=== PATIENT | female | born 1995 | race African-American/Black ===

== ENCOUNTER 2024-02-04 07:43 | Emergency (ER) | payer MEDICAID ==
[~2024-02-04] VITALS: Ht 175.3 cm; Wt 82.0 kg
[2024-02-04 07:49] VITALS: O2SAT 100
[2024-02-04] MEDS ORDERED: AMOX1TAB16 PO (08:17)
[2024-02-04] MEDS ORDERED: IBUP-2030 PO (08:17)
[2024-02-04] MEDS: ACETAMINOPHEN WITH CODEINE 300/30MG TABLET PO ONE (08:22)
[2024-02-04] MEDS: IBUPROFEN 800MG TABLET PO ONE (08:22)
[2024-02-04 08:44] VITALS: BP 127/71; PULSE 69; RESP 16; TEMP 36.72516; O2SAT 99
== END 2024-02-04 08:45 | disposition home or self-care (01) ==
LOC: ER 07:43
DX: K04.7 Periapical abscess without sinus (principal); Z88.6 Allergy status to analgesic agent
CPT/HCPCS: 81025; 99283

== ENCOUNTER 2024-10-12 12:57 | Emergency (ER) | payer MEDICAID ==
[~2024-10-12] VITALS: Ht 175.3 cm; Wt 79.4 kg
[~2024-10-12 12:57] MED LIST: AMOX1TAB16 PO; IBUP-2030 PO
[2024-10-12 13:01] VITALS: O2SAT 100
[2024-10-12 13:05] VITALS: BP 118/86; PULSE 74; RESP 16; TEMP 36.9; O2SAT 100
[2024-10-12] MEDS ORDERED: PREN-118 MT (15:50)
== END 2024-10-12 16:13 | disposition home or self-care (01) ==
LOC: ER 12:57
DX: O26.891 Other specified pregnancy related conditions, first trimester (principal); Z79.1 Long term (current) use of non-steroidal anti-inflammatories (NSAID); Z3A.08 8 weeks gestation of pregnancy; Z79.899 Other long term (current) drug therapy
CPT/HCPCS: 36415; 76801; 81025; 84702; 99284

== ENCOUNTER 2024-12-11 08:19 | Emergency (ER) | payer MEDICAID ==
[~2024-12-11] VITALS: Ht 175.3 cm; Wt 81.6 kg
[~2024-12-11 08:19] MED LIST changes: +PREN-118 MT
[2024-12-11 08:26] VITALS: O2SAT 100
[2024-12-11 08:33] VITALS: BP 119/60; PULSE 115; RESP 18; TEMP 37.2; O2SAT 99
[2024-12-11] MEDS ORDERED: SODIUM CHLORIDE 0.9% 1,000 ML IV ONE (09:15)
[2024-12-11] MEDS ORDERED: ONDANSETRON HCL 4MG/2ML INJ IV ONE (09:15)
[2024-12-11 09:19] LABS: CLARITY URINE CLEAR (CLEAR); COLOR URINE YELLOW (YELLOW); GLUCOSE URINE NEGATIVE (NEGATIVE); KETONES URINE TRACE (NEGATIVE); LEUKOCYTE ESTERASE URINE TRACE (NEGATIVE); NITRITE URINE NEGATIVE (NEGATIVE); OCCULT BLOOD URINE NEGATIVE (NEGATIVE); PH URINE 8.5 (4.5-8.0); PROTEIN URINE TRACE (NEGATIVE); SPECIFIC GRAVITY URINE 1.018 (1.005-1.030); UROBILINOGEN URINE 1.0 E.U./dL (0.2-1.0)
[2024-12-11 09:28] LABS: HEMATOCRIT. 32.7 % (36.0-48.0); HEMOGLOBIN. 11.3 g/dL (12.0-16.0); MEAN PLATELET VOLUME 7.7 fl (7.4-10.4); PLATELET 313 x1000/uL (130-400); RED BLOOD CELL COUNT 3.96 mill/uL (4.2-5.4); RED CELL DISTRIBUTION WIDTH 14.1 % (11.6-14.6)
[2024-12-11 09:45] LABS: BACTERIA URINE 3+; RBC URINE 0-2 /hpf (0-2); SQUAMOUS EPITHELIAL CELL URINE 3+ /lpf (RARE/1+)
[2024-12-11 09:45] LABS: CREATININE 0.9 mg/dL (0.6-1.0); UREA NITROGEN BLOOD 7 mg/dL (9-23)
[2024-12-11 09:47] LABS: ASPARTATE AMINOTRANSFERASE 15 IU/L (<34); BILIRUBIN DIRECT 0.1 mg/dL (<=3.0); BILIRUBIN TOTAL 0.5 mg/dL (0.1-1.0); PROTEIN TOTAL 7.2 g/dL (6.0-8.3)
[2024-12-11] MEDS ORDERED: FAMOTIDINE 20MG/2ML VIAL IV ONE (10:15)
[2024-12-11] MEDS ORDERED: MAGNESIUM/ALUMINUM HYDROXIDE/SIMETHICONE 30ML UDC PO ONE (10:15)
[2024-12-11 10:27] LABS: B-HCG QUANTITATIVE 13477 mIU/mL (<6)
[2024-12-11 11:17] LABS: BAND% 17.0 % (1.0-6.0); LYMPHOCYTES % MANUAL 5.0 % (20.0-60.0); MONOCYTES % MANUAL 4.0 % (2.0-8.0); NEUTROPHILS % MANUAL 74.0 % (45.0-75.0); PLATELET ESTIMATE NORMAL
== END 2024-12-11 10:42 | disposition left against medical advice (07) ==
LOC: ER 10:20
DX: O26.892 Other specified pregnancy related conditions, second trimester (principal); O21.9 Vomiting of pregnancy, unspecified; R10.2 Pelvic and perineal pain; Z3A.17 17 weeks gestation of pregnancy
CPT/HCPCS: 99284; 76705; 76805; 80076; 80048; 81003; 84702; 85025; 86850; 86900; 86901; 36415; J7030